=== PATIENT | female | born 1935 | race Caucasian/White ===

== ENCOUNTER 2016-10-05 10:23 | Emergency (ER) | payer MEDICARE, OTHER ==
--- NOTE | 2016-10-05 11:10 | EDM.PDOC ---
ED HPI Skin/Rash - General Chief Complaint: Skin Complaint Stated Complaint: skin infection Time Seen by Provider: 10/05/16 10:26 Source: Reports: Patient, Family, RN, RN notes reviewed History Limitations: Reports: No limitations - History of Present Illness INITIAL COMMENTS - FREE TEXT/NARRATIVE: The patient presents the emergency room at [facility] with concerns of a possible surgical site infection. The patient had I nerve stimulator placed yesterday for her fecal incontinence and lymphocytic colitis. The patient is concerned today as the area has gotten more swollen red and very warm to touch. The area is also tender to palpation. Symptom Onset Date: 10/04/16 Timing: Reports: still present Location, Skin: Reports: other (7cm horizontal incision upper right buttocks) Quality: Reports: Burning Severity: moderate - Related Data Allergies Allergy/AdvReac Type Severity Reaction Status Date / Time codeine Allergy Rash Verified 10/05/16 10:41 minocycline Allergy Cannot Verified 10/05/16 10:41 Remember Penicillins Allergy Rash Verified 10/05/16 10:41 METAL Allergy Rash Uncoded 10/05/16 10:41 Home Meds: Ambulatory Orders Medication Instructions Recorded Confirmed Aspirin [Halfprin] 1 tab PO DAILY 06/02/14 07/28/14 Biotin 5,000 mcg PO DAILY 06/02/14 07/28/14 Ca/D3/Mag#11/Zinc/Board Runner/Shiv/Bor 1 tab PO DAILY 06/02/14 07/28/14 [Caltrate 600+D Plus Tablet] Cholecalciferol (Vitamin D3) 2,000 units PO DAILY 06/02/14 07/28/14 [Vitamin D-3] Donepezil HCl [Aricept] 10 mg PO DAILY 06/02/14 07/28/14 Doxepin [SINEquan] 25 mg PO DAILY 06/02/14 07/28/14 Hydrochlorothiazide 25 mg PO DAILY 06/02/14 07/28/14 Ibandronate [Boniva] 1 tab PO Q28D 06/02/14 07/28/14 Lactobacillus Combination No.4 4 mg PO DAILY 06/02/14 07/28/14 [Probiotic] Mirtazapine [Remeron] 15 mg PO ACBED 06/02/14 07/28/14 Pramipexole Di-HCl [Mirapex] 1.5 mg PO ACBED 06/02/14 07/28/14 Primidone [Mysoline] 3 tab PO BID 06/02/14 07/28/14 Propranolol [Inderal LA] 60 mg PO ACBED 06/02/14 07/28/14 Sertraline [Zoloft] 50 mg PO DAILY 06/02/14 07/28/14 Simvastatin [Zocor] 40 mg PO DAILY 06/02/14 07/28/14 Clindamycin HCl 300 mg PO BID #20 capsule 10/05/16 Past Medical History HEENT History: Reports: Other (see below) Other HEENT History: myopia Cardiovascular History: Reports: Heart murmur, High cholesterol, Hypertension Gastrointestinal History: Reports: Other (see below) Other Gastrointestinal History: lymphocytic colitis Musculoskeletal History: Reports: Osteoarthritis Neurological History: Reports: Other (see below) Other Neuro History: essential tremor Psychiatric History: Reports: Depression Endocrine/Metabolic History: Reports: Osteopenia Dermatologic History: Reports: Other (see below) Other Dermatologic History: seborrheic keratoses - Past Surgical History HEENT Surgical History: Reports: Cataract surgery Musculoskeletal Surgical History: Reports: Arthroscopic knee, Other (see below) Other Musculoskeletal Surgeries/Procedures:: restless leg syndrome Social & Family History - Tobacco Use Smoking Status *Q: Never Smoker - Alcohol Use Days Per Week of Alcohol Use: 7 Number of Drinks Per Day: 1 Total Drinks Per Week: 7 - Recreational Drug Use Recreational Drug Use: No ED ROS GENERAL - Review of Systems Review Of Systems: See Below Constitutional: Denies: fever, chills, weakness Respiratory: Denies: Shortness of Breath, Cough Cardiovascular: Denies: Chest pain, Palpitations GI/Abdominal: Denies: Abdominal pain, Nausea, Vomiting Skin: Reports: erythema, wound (right upper buttocks redness, pain, tenderness) Neurological: Reports: No Symptoms ED EXAM, SKIN/RASH Exam: See Below Exam Limited By: No limitations General Appearance: alert, no apparent distress Respiratory/Chest: no respiratory distress, lungs clear, normal breath sounds Cardiovascular: regular rate, rhythm GI/Abdominal: normal bowel sounds, soft, non tender Neurological: alert, oriented Skin: Warm, Dry, Normal color, No rash Location, Skin: other (right upper buttocks; 7cm horizontal surgical site incision; red/erythematous, tender to palp, very warm to touch, no drainage, incision intact) Associated features: warmth, tenderness, swelling Course - Vital Signs Last Recorded V/S: Last Vital Signs Temp 36.2 C 10/05/16 10:25 Pulse 60 10/05/16 10:25 Resp 16 10/05/16 10:25 BP 187/88 H 10/05/16 10:25 Pulse Ox Departure - Departure Time of Disposition: 11:09 Disposition: Home, Self-Care 01 Condition: good Clinical Impression: Deep incisional surgical site infection Qualifiers: Encounter type: initial encounter Qualified Code(s): T81.4XXA - Infection following a procedure, initial encounter Prescriptions: Clindamycin HCl 300 mg PO BID #20 capsule Forms: ED Department Discharge Additional Instructions: 1. Stay well hydrated and rest 2. Keep band aid on, may change every 24 hours 3. Take antibiotics for the full coarse, even if you are feeling better 4. Take antibiotics with food/yogurt 5. See your Primary as symptoms warrant 6. Follow instructions given to you from the surgeon - Problem List Review Problem List Initiated/Reviewed/Updated: Yes
== END 2016-10-05 11:20 | disposition home or self-care (01) ==
LOC: VM.ED 10:23
CPT/HCPCS: 99282; 99283-GF